=== PATIENT | female | born 1980 | race African-American/Black ===

== ENCOUNTER 2019-11-22 23:11 | Emergency (ER) | payer MEDICAID, OTHER ==
[~2019-11-22] VITALS: Ht 162.6 cm; Wt 65.9 kg
[2019-11-22 23:19] VITALS: BP 140/85
[2019-11-22] MEDS ORDERED: KETOROLAC 60 MG/2 ML ONE (23:25)
[2019-11-22] MEDS ORDERED: KETOROLAC 60 MG/2 ML IM ONE (23:30)
== END 2019-11-23 00:02 | disposition home or self-care (01) ==
LOC: ED 23:30
DX: M79.671 Pain in right foot (principal); F17.200 Nicotine dependence, unspecified, uncomplicated; F15.10 Other stimulant abuse, uncomplicated; Z72.9 Problem related to lifestyle, unspecified
CPT/HCPCS: 96372; 99283; J1885